=== PATIENT | female | born 1995 | race African-American/Black ===

== ENCOUNTER 2017-07-05 08:00 | Emergency (ER) | payer OTHER ==
[~2017-07-05] VITALS: Ht 167.6 cm; Wt 54.0 kg
[2017-07-05 08:04] VITALS: Ht 167.6 cm; Wt 54.0 kg
[2017-07-05 09:20] VITALS: BP 129/78
== END 2017-07-05 09:20 | disposition left against medical advice (07) ==
LOC: ED 08:00
DX: N89.8 Other specified noninflammatory disorders of vagina (principal)

== ENCOUNTER 2018-01-11 15:24 | Emergency (ER) | payer OTHER ==
[~2018-01-11] VITALS: Ht 167.6 cm; Wt 52.2 kg
[2018-01-11 18:19] VITALS: BP 121/68
[2018-01-14 05:17] LABS: RAPID PLASMA REAGIN Non Reactive (Non Reactive)
== END 2018-01-11 18:19 | disposition home or self-care (01) ==
LOC: ED 15:24
PROVIDERS: Emergency Medicine
DX: N89.8 Other specified noninflammatory disorders of vagina (principal)
CPT/HCPCS: 87491; 87591

== ENCOUNTER 2018-03-01 15:47 | Emergency (ER) | payer OTHER ==
[~2018-03-01] VITALS: Ht 167.6 cm; Wt 50.5 kg
[2018-03-01 16:00] VITALS: Ht 167.6 cm; Wt 50.5 kg
[2018-03-01 18:50] VITALS: BP 114/68
== END 2018-03-01 18:50 | disposition home or self-care (01) ==
LOC: ED 15:47
DX: O26.891 Other specified pregnancy related conditions, first trimester (principal); R11.0 Nausea; Z3A.08 8 weeks gestation of pregnancy

== ENCOUNTER 2018-03-27 22:06 | Emergency (ER) | payer OTHER ==
[~2018-03-27] VITALS: Ht 167.6 cm; Wt 47.6 kg
[2018-03-27 22:19] VITALS: Ht 167.6 cm; Wt 47.6 kg
[2018-03-27 23:07] LABS: CALCIUM 9.2 mg/dL (8.5-10.1); CARBON DIOXIDE 25.5 mmol/L (21-32); CHLORIDE SERUM 98 mmol/L (98-107); CREATININE SERUM 0.6 mg/dL (0.6-1.0); GFR1 > 60 mL/min; GLUCOSE SERUM 88 mg/dL (74-106); POTASSIUM SERUM 3.6 mmol/L (3.5-5.1); SODIUM SERUM 130 mmol/L (136-145)
[2018-03-27 23:12] LABS: BASOPHIL % 0.4 % (0-2); PLATELET COUNT 233 x10^3mcL (130-400); RED CELL DISTRIBUTION WIDTH 12.3 % (11.5-14.5)
[2018-03-27 23:13] LABS: ALBUMIN 3.9 g/dL (3.4-5.0); ALKALINE PHOSPHATASE 49 U/L (46-116); ALT/SGPT 18 U/L (14-59); AST/SGOT 16 U/L (15-37); BILIRUBIN TOTAL 0.52 mg/dL (0.20-1.00)
[2018-03-28 00:06] VITALS: BP 108/69
== END 2018-03-28 00:06 | disposition home or self-care (01) ==
LOC: ED 22:06
PROVIDERS: Emergency Medicine
DX: O21.0 Mild hyperemesis gravidarum (principal); Z3A.08 8 weeks gestation of pregnancy; Z86.19 Personal history of other infectious and parasitic diseases
CPT/HCPCS: J2405; J7030

== ENCOUNTER 2019-01-22 19:51 | Emergency (ER) | payer OTHER ==
[~2019-01-22] VITALS: Ht 172.7 cm; Wt 54.9 kg
[2019-01-22 20:02] VITALS: BP 117/79; Ht 172.7 cm; Wt 54.9 kg
== END 2019-01-22 21:36 | disposition home or self-care (01) ==
LOC: ED 19:51
DX: J02.9 Acute pharyngitis, unspecified (principal)
CPT/HCPCS: J1100